=== PATIENT | female | born 1955 | race Caucasian/White ===

== ENCOUNTER 2018-03-31 18:38 | Emergency (ER) | payer OTHER, BC, SELFPAY ==
[2018-03-31 18:44] VITALS: BP 130/87; PULSE 95; RESP 16; TEMP 36.5; O2SAT 97
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
[2018-03-31 19:31] LABS: Abs Immature Grans 0.08 k/cumm (0.0-0.09); Absolute Basophil Count 0.02 k/cumm (0.0-0.2); Absolute Eosinophil Count 0.16 k/cumm (0.0-0.7); Absolute Lymphocyte Count 2.69 k/cumm (1.2-3.4); Absolute Neutrophil Count 5.65 k/cumm (1.2-6.7); Basophils % 0.2; Eosinophils % 1.8; HCT 33.1 % (36.0-46.0); HGB 10.4 g/dL (12.0-15.5); Immature Grans % 0.9; Lymphocytes % 29.6; Mean Corp. HGB Concentration 31.4 g/dL (32.0-36.0); Mean Corpuscular Hemoglobin 28.7 pg (27.0-33.0); Mean Corpuscular Volume 91.4 fL (80-95); Mean Platelet Volume 8.7 fL (8.0-11.0); Monocytes % 5.5; Platelet Count 397 x1000/uL (130-400); RBC 3.62 m/cumm (4.00-5.20); RBC Distribution Width 14.2 % (11.7-14.6)
[2018-03-31] MEDS: Normal Saline 1,000 ML 1000 ML IV (19:31)
[2018-03-31] MEDS: Ondansetron 4 MG/2 ML VIAL IVP (19:31)
[2018-03-31 20:09] LABS: ALT 49 U/L (12-78); AST 70 U/L (15-37); Alkaline Phosphatase 287 U/L (46-116); Anion Gap 8.2 mmol/L (3-11); BUN 27 mg/dL (7-18); Bilirubin, Total 0.2 mg/dL (0.2-1.0); CO2 28.8 mmol/L (21.0-32.0); CREATININE 0.82 mg/dL (0.55-1.02); Calcium 8.6 mg/dL (8.5-10.1); Chloride 102 mmol/L (98-107); Glucose 129 mg/dL (70-100); Potassium 3.5 mmol/L (3.5-5.1); Sodium 139 mmol/L (136-145); Total Protein 7.2 g/dL (6.4-8.2)
--- NOTE | 2018-03-31 20:12 | DI.VRAD_ITS ---
EXAM: CT Head Without Intravenous Contrast CLINICAL HISTORY: 62 years old, female; Signs and symptoms; Dizziness TECHNIQUE: Axial computed tomography images of the head/brain without intravenous contrast. Coronal and sagittal reformatted images were created and reviewed. COMPARISON: No relevant prior studies available. FINDINGS: Brain: Physiologic calcification in the basal ganglia. No hemorrhage. No significant white matter disease. Ventricles: No focal pathology. No ventriculomegaly. Bones/joints: No focal pathology. No acute fracture. Soft tissues: Unremarkable. Sinuses: No significant mucosal thickening. Mastoid air cells: Unremarkable as visualized. No mastoid effusion. IMPRESSION: No acute findings. Dictated and Authenticated by: May Smith MD. Ordering:JES CLARKE MD
--- NOTE | 2018-03-31 20:13 | DI.VRAD_ITS ---
EXAM: XR Chest, 2 Views CLINICAL HISTORY: 62 years old, female; Signs and symptoms; Fever TECHNIQUE: Frontal and lateral views of the chest. COMPARISON: No relevant prior studies available. FINDINGS: Lungs: The lungs appear mildly hyperinflated. No airspace consolidation. Pleural space: No focal pathology. No pneumothorax. Heart: No focal pathology. No cardiomegaly. Mediastinum: Unremarkable. Bones/joints: A lumbar dextroscoliosis is partially seen. The bones are demineralized. Degenerative changes in the spine. IMPRESSION: No acute cardiopulmonary pathology. Dictated and Authenticated by: May Smith MD. Ordering:JES CLARKE MD
[2018-03-31 20:15] LABS: Troponin I < 0.02 ng/mL (0.00-0.06)
[2018-03-31 21:38] VITALS: BP 135/79; PULSE 95; RESP 16; TEMP 36.5; O2SAT 98
== END 2018-03-31 21:42 | disposition home or self-care (01) ==
PROVIDERS: Emergency Provider Emergency Medicine; PCP Family Medicine
DX: R55 Syncope and collapse (principal); R11.2 Nausea with vomiting, unspecified; R14.0 Abdominal distension (gaseous); V43.52XA Car driver injured in collision with other type car in traffic accident, initial encounter; T14.90XA Injury, unspecified, initial encounter; Z71.1 Person with feared health complaint in whom no diagnosis is made
CPT/HCPCS: 36415; 80053; 93005; 96361; 96374; 99285; 70450; 71046; 83735; 84484; 85025; 93010; 99284; J2405

== ENCOUNTER 2019-04-23 09:00 | Outpatient (REF) | payer BC, SELFPAY ==
[2019-04-23 15:11] LABS: Calculated LDL 154 mg/dL; Cholesterol 231 mg/dL (50-200); Glucose 82 mg/dL (70-100); HDL Cholesterol 63 mg/dL (40-60); Triglyceride 70 mg/dL (30-150)
== END 2019-04-23 09:20 ==
LOC: NCHCO 09:00
PROVIDERS: PCP Family Medicine; Visit Provider Family Medicine
DX: Z00.00 Encounter for general adult medical examination without abnormal findings (principal); I10 Essential (primary) hypertension; Z13.220 Encounter for screening for lipoid disorders
CPT/HCPCS: 80061; 82947

== ENCOUNTER 2022-07-01 17:25 | Outpatient (REF) | payer OTHER, SELFPAY ==
[2022-07-01 21:26] LABS: HCT 37.6 % (36.0-46.0); HGB 11.9 g/dL (11.2-15.7); MCHC 31.6 % (32.0-36.0); MCV 92 fL (80-95); MPV 9.4 fL (8.0-11.0); Platelet Count 315 10^3/uL (130-400); RBC 4.11 10^6/uL (3.93-5.22); RDW 12.8 % (11.7-14.6); RDW-SD 42.8 fL; WBC 8.65 10^3/uL (4.4-10.8)
[2022-07-01 22:00] LABS: Anion Gap 8.7 mmol/L (3-11); BUN 28 mg/dL (7-18); CO2 28.3 mmol/L (21.0-32.0); CREATININE 0.6 mg/dL (0.55-1.02); Calcium 8.9 mg/dL (8.5-10.1); Chloride 104 mmol/L (98-107); Estimated GFR 99.55 (mL/min/1.73m2); Glucose 100 mg/dL (74-106); Potassium 4.2 mmol/L (3.5-5.1); Sodium 141 mmol/L (136-145); TSH (W/Ref FT4) 1.28 uIU/mL (0.36-3.74)
== END 2022-07-01 17:26 | disposition home or self-care (01) ==
LOC: NCHCN 17:25
PROVIDERS: PCP Family Medicine; Visit Provider Family Medicine
DX: R00.0 Tachycardia, unspecified (principal)
CPT/HCPCS: 80048; 85027; 83735; 84443